=== PATIENT | female | born 1930 | race Caucasian/White ===

== ENCOUNTER → 2017-11-05 | Outpatient (CLI) | payer OTHER ==
[~2017-11-05] VITALS: Ht 167.6 cm; Wt 68.0 kg
[~2017-11-05] MED LIST: COZAAR 25 MG TA25 M1 PO; FISH OIL 1,001000 M2 PO; FOLIC ACID1 MG PO; MAGNESIUM500 MG PO
[2017-11-05 14:08] VITALS: BP 152/94
== END ==
LOC: SEN 12:01
DX: I10 Essential (primary) hypertension (principal)